=== PATIENT | male | born 1995 | race Caucasian/White ===

== ENCOUNTER 2019-01-27 02:20 | Emergency (ER) | payer BC, OTHER ==
[~2019-01-27] VITALS: Ht 180.3 cm; Wt 104.3 kg
[2019-01-27 03:42] LABS: ABSOLUTE NEUTROPHILS 3.8 thou/uL (1.4-8.2); BASOPHILS 0.6 % (0.0-2.0); HEMOGLOBIN 14.9 gm/dL (14.0-18.0); MCH 28.2 pg (26.0-34.0); MONOCYTES 10.6 % (1.0-8.0); PLATELET COUNT 170 thou/uL (150-400); POLYS 56.8 % (36.0-66.0); WBC 6.6 thou/uL (4.0-11.0)
[2019-01-27 03:48] LABS: ANION GAP 14 mmol/L (7-16); BUN 15 mg/dL (7-18); CALCIUM 9.6 mg/dL (8.5-10.1); CHLORIDE 102 mmol/L (98-107); CO2 23 mmol/L (21-32); CREATININE 0.9 mg/dL (0.7-1.3); GLUCOSE 109 mg/dL (74-106); SODIUM 139 mmol/L (136-145)
[2019-01-27 03:59] LABS: ALBUMIN 4.6 g/dL (3.4-5.0); SGPT 137 U/L (30-65); TOTAL BILIRUBIN 0.8 mg/dL (<0.1-1.0); TOTAL PROTEIN 8.1 g/dL (6.4-8.2); TROPONIN-I <0.06 ng/mL (<0.06)
[2019-01-27 04:13] LABS: SGOT 50 U/L (15-37)
[2019-01-27 05:12] VITALS: BP 160/71
--- NOTE | 2019-01-27 10:21 | EKG ---
[place] [address] [employer] [place] [address] ELECTROCARDIOGRAM REPORT Name: GIACOMO RIVER III Room #: [facility] [id number] Admission: 01/27/19 Attend Phys: Discharge: 01/27/19 Date of : [birth year] Report #: [id number] THIS REPORT FOR: //name// [facility] ED Test Date: 2019-01-27 Test Time: 02:30:54 Pat Name: GIACOMO RIVER Department: Room: Gender: Order Make Up Clerk: [place] [id number] : 1995 Requested By: Moris De La Torre Order Number: [id number] MD: Mariano Vela Measurements Intervals [place] Rate: 98 P: 38 FL: 135 QRS: 60 QRSD: 99 T: 10 QT: 345 QTc: 441 Interpretive Statements Sinus rhythm ST elev, probable normal early repol pattern Baseline wander in lead(s) V3 No previous ECG available for comparison Electronically Signed On 01-27-2019 10:20:46 CDT by Mariano Veal [email or web address] <ELECTRONICALLY SIGNED> By: Mariano Vela MD 01/27/19 1020 0230 0230 Mariano Vela MD /CLAUDIO
== END 2019-01-27 05:12 | disposition home or self-care (01) ==
LOC: ER 02:20
PROVIDERS: Emergency Medicine
DX: R07.9 Chest pain, unspecified (principal); E78.5 Hyperlipidemia, unspecified; F41.9 Anxiety disorder, unspecified; F32.9 Major depressive disorder, single episode, unspecified